=== PATIENT | male | born 1960 | race Caucasian/White ===

== ENCOUNTER 2025-02-13 11:22 | Day surgery (SDC) | payer OTHER, SELFPAY ==
--- NOTE | 2025-02-13 11:43 | US_ITS ---
WS: [id number] ULTRASOUND-GUIDED THERAPEUTIC PARACENTESIS Procedure, risks, and complications have been explained to the patient. Consent is obtained. Utilizing aseptic technique and 1% buffered lidocaine, a small dermatome was made through which a 5 Swiss Yueh catheter was inserted. Approximately 7000 ml of clear peritoneal fluid was obtained without difficulty. No complications encountered. US/US paracentesis abd w [id number] IMPRESSION: Uncomplicated paracentesis yielding 7000 ml of peritoneal fluid.
[2025-02-13 11:51] VITALS: BMI 43.4
[2025-02-13 12:06] VITALS: BP 136/81; PULSE 81; RESP 18; TEMP 36.6; O2SAT 97
== END 2025-02-13 13:29 | disposition home or self-care (01) ==
PROVIDERS: Radiology Diagnostic Radiology; PCP Family Medicine; Visit Provider Nurse Practitioner Family
PROC: (CPT 49082; principal; 2025-02-13 12:30)
DX: R18.8 Other ascites (principal)
CPT/HCPCS: 49083

== ENCOUNTER 2025-02-13 15:18 | Outpatient (CLI) | payer OTHER, SELFPAY ==
--- NOTE | 2025-02-13 15:55 | MR_ITS ---
WS: [id number] MRI ABDOMEN WITH AND WITHOUT CONTRAST. COMPARISON: CT 02/09/2025 Multiplanar, multisequence imaging is performed with and without contrast. Sagittal and axial T1 fat sat sequences post-MultiHance 20 cc IV. The study is compromised by breathing motion artifact. Patient was unable to hold his breath and remain still for this examination. Irregular, nodular cirrhotic appearing liver. Mild enlargement of the LEFT lobe and the caudate lobe. There is variable attenuation and signal within the liver. There are 2 hepatic masses extending exophytic from the liver capsule. The largest is 4.5 x 3.3 cm and is extending anterior and lateral from the dome. There is a smaller mass just medial to this larger dominant mass measuring 2.7 x 2.4 cm. There is significant motion between sequences and even images within the sequences. I suspect there may be additional areas of abnormal enhancement. Possible additional metastatic site in the inferior posterior RIGHT lobe and along the everardo hepatis. Portal vein is not well visualized. No intrahepatic duct dilatation. There is a small amount of ascites throughout the peritoneal cavity. Spleen is enlarged measuring 15.5 cm in length. No pancreatic abnormality. Adrenal glands are not well visualized. Kidneys are poorly visualized. Mild soft tissue anasarca. MR/MR abdomen wo/w con* [id number] IMPRESSION: 1. MRI of the abdomen is significantly compromised by motion artifact on all s equences. 2. At least 2 hepatic masses are identified. The largest along the RIGHT diaph ragmatic dome measures 4.5 x 3.3 cm. There is a smaller mass measuring 2.7 x 2. 4 cm near the falciform ligament. I suspect there may be other masses which are obscured by the motion artifact. 3. Small amount of ascites. 4. Splenomegaly. 5. Recommend additional imaging of the abdomen with attention to the liver. Th is study is not sufficient to characterize disease or extent of disease due to significant motion artifact. Patient may benefit from a CT of the abdomen with and without contrast with attention to the liver for HCC. Short of breath holdi ng and less time is necessary for CT compared to MRI.
[2025-02-13] MEDS: gadobenate dimeglumine 20 mL vial IV (16:33)
== END 2025-02-13 15:19 | disposition home or self-care (01) ==
LOC: RAD 15:20
PROVIDERS: PCP Family Medicine; Visit Provider Nurse Practitioner Family
DX: K76.89 Other specified diseases of liver (principal); R18.8 Other ascites; R16.1 Splenomegaly, not elsewhere classified; R16.0 Hepatomegaly, not elsewhere classified
CPT/HCPCS: 74183